=== PATIENT | female | born 1995 | race Caucasian/White ===

== ENCOUNTER 2020-02-02 09:08 | Emergency (ER) | payer SELFPAY ==
[~2020-02-02] VITALS: Ht 157.5 cm; Wt 57.0 kg
[2020-02-02 10:11] VITALS: BP 136/80
== END 2020-02-02 10:14 | disposition home or self-care (01) ==
LOC: ER 09:08
DX: Z01.84 Encounter for antibody response examination (principal); T50.Z95A Adverse effect of other vaccines and biological substances, initial encounter; Y92.89 Other specified places as the place of occurrence of the external cause
CPT/HCPCS: 99281